=== PATIENT | female | born 1960 | race Caucasian/White ===

== ENCOUNTER 2021-06-08 18:07 | Emergency (ER) | payer OTHER, BC ==
[~2021-06-08] VITALS: Ht 170.2 cm; Wt 81.7 kg
[2021-06-08] MEDS ORDERED: MELOXICAM5 MG (18:18)
[2021-06-08] MEDS ORDERED: HYDROCODON-ACE1 EA10 (18:18)
[2021-06-08] MEDS ORDERED: METHOCARBAMOL500 MG (18:19)
[2021-06-08] MEDS ORDERED: VENTOLIN HFA18 GM (18:19)
[2021-06-08] MEDS ORDERED: HYDROCODON-ACE1 EA10 PO (19:01)
== END 2021-06-08 19:21 | disposition home or self-care (01) ==
LOC: ED 18:07
DX: S20.212A Contusion of left front wall of thorax, initial encounter (principal); W01.0XXA Fall on same level from slipping, tripping and stumbling without subsequent striking against object, initial encounter; Z88.2 Allergy status to sulfonamides; Z79.899 Other long term (current) drug therapy
CPT/HCPCS: 71046; 96372; 99283-25; J1885

== ENCOUNTER 2024-06-11 19:44 | Emergency (ER) | payer BC ==
[~2024-06-11] VITALS: Ht 170.2 cm; Wt 88.0 kg
[~2024-06-11 19:44] MED LIST: HYDROCODON-ACE1 EA10; HYDROCODON-ACE1 EA10 PO; MELOXICAM5 MG; METHOCARBAMOL500 MG; VENTOLIN HFA18 GM
[2024-06-11] MEDS ORDERED: CEPHALEXIN500 MG PO (20:49)
[2024-06-11] MEDS ORDERED: SODIUM CHLORIDE 0.9% 1,000 ML IV ONE (21:00)
[2024-06-11] MEDS ORDERED: MORPHINE SULFATE 4 MG/ML VIAL IV ONE (21:00)
[2024-06-11] MEDS ORDERED: ondansetron HCL 4 MG/2 ML VIAL IV ONE (21:00)
[2024-06-11 21:18] LABS: BASOPHILS 0.3 % (0-2); EOSINOPHILS 0.6 % (0-6); HEMATOCRIT 37.9 % (35.0-50.0); HEMOGLOBIN 12.5 g/dL (12.0-18.0); LYMPHOCYTES 11.5 % (24-44); MCH 28.2 (27-36); MCHC 32.9 g/dl (30-36); MCV 85.6 fl (81-99); NEUTROPHILS 79.6 % (39-80); PLATELET COUNT 310 K/uL (140-440); RBC 4.43 M/ul (4.3-5.7); RDW 13.7 (10.5-15.0)
[2024-06-11 21:40] LABS: ALBUMIN 4.1 g/dL (3.4-5.0); ALBUMIN/GLOBULIN RATIO 1.17 (1.1-2.4); ANION GAP 14.5 (7-21); BILIRUBIN, TOTAL 0.2 ng/dL (0.2-1.0); BUN/CREATININE RATIO 14.58 (6.0-28.6); CALCIUM 9.7 mg/dL (8.5-10.1); CREATININE, SERUM 0.96 mg/dL (0.55-1.02); POTASSIUM 3.5 mmol/L (3.5-5.1); PROTEIN, TOTAL 7.6 g/dL (6.4-8.2)
[2024-06-11 22:02] LABS: BILIRUBIN, URINE NEGATIVE (negative); BLOOD/HGB, URINE SMALL (Negative); KETONE, URINE NEGATIVE (Negative); LEUK ESTERASE, URINE SMALL (negative); NITRITE, URINE NEGATIVE (negative); PH, URINE 5.5 (5-7)
[2024-06-11 22:07] LABS: CRYSTALS, URINE NONE SEEN (0-1+); EPITHELIAL CELLS, URINE SQUAMOUS 4+ /lpf (0-1+)
[2024-06-11 22:08] LABS: BACTERIA, URINE RARE /hpf (negative); CASTS, URINE NONE SEEN \\lpf; COLLECTION TYPE, URINE CLEAN CATCH; REFLEX CULTURE, URINE No (No); WHITE BLOOD CELLS, URINE 21-40 /HPF (0-5)
[2024-06-11] MEDS ORDERED: HYDROmorphone HCL 1 MG/ML SYR IV PRN (22:45)
[2024-06-11] MEDS ORDERED: AMOX TR-K CLV1 EAC1 PO (23:09)
[2024-06-11] MEDS ORDERED: ONDANSETRON ODT8 MG PO (23:09)
[2024-06-11] MEDS ORDERED: HYDROCODON-ACE1 EA10 PO (23:09)
[2024-06-11] MEDS ORDERED: HYDROCODONE BIT/ACETAMINOPHEN 5/325 MG 1 TAB HOME.PACK PO ONE (23:15)
[2024-06-11] MEDS ORDERED: AMOXICILLIN/CLAVULANATE K 875 MG HOME.PACK PO ONE (23:15)
[2024-06-11] MEDS ORDERED: ONDANSETRON 4 MG HOME.PACK SL ONE (23:15)
[2024-06-11 23:25] VITALS: BP 130/72
== END 2024-06-11 23:25 | disposition home or self-care (01) ==
LOC: ED 19:44
PROVIDERS: Family Medicine
DX: K52.9 Noninfective gastroenteritis and colitis, unspecified (principal); Z88.2 Allergy status to sulfonamides
CPT/HCPCS: 36415; 74177; 80053; 81001; 83605; 83690; 85025; 96375; 99284-25; A9270; J1170; J2270; J2405; J7030; Q9967